=== PATIENT | male | born 1960 | race Caucasian/White ===

== ENCOUNTER 2019-06-07 13:08 | Emergency (ER) | payer BC ==
--- NOTE | 2019-06-07 13:49 | UC ---
General HPI - HPI Summary HPI Summary: 59yo male with PMH significant for htn and migraine presenting with for reported high bp this morning (180s/116) at pcp office. Patient states the visit went well and that his pcp changed one of his bp meds this morning. Unsure which one. Patient states that he then went to physical therapy and his blood pressure was still high. States at one point he began to have blurry vision, migraine, and tingling in his right hand/fingers. States this only lasted a few minutes and that it is similar to when he used to get migraines. States he has not had one in a long time. Denies any symptoms currently. Denies motor weakness. Denies n/v. Denies sweating. Denies chest pain, sob, and difficulty breathing. - History of Current Complaint Chief Complaint: UCEye Stated Complaint: BLOOD PRESSURE UP BLURRED VISION Hx Obtained From: Patient Pain Intensity: 0 - Allergy/Home Medications Allergies/Adverse Reactions: Allergies Allergy/AdvReac Type Severity Reaction Status Date / Time No Known Allergies Allergy Verified 06/07/19 15:18 Home Medications: Home Medications Omeprazole CAP (NF) [Prilosec CAP* 20 MG] 40 mg PO QAM 02/07/16 [History Confirmed 06/07/19] Atenolol TAB* [Tenormin TAB* 25 MG] 25 mg PO DAILY 06/07/19 [History Confirmed 06/07/19] Ibuprofen [Advil] 400 mg PO Q6HR PRN 06/07/19 [History Confirmed 06/07/19] Lisinopril TAB* [Prinivil TAB*] 20 mg PO DAILY 06/07/19 [History Confirmed 06/06] PMH/Surg Hx/FS Hx/Imm Hx Cardiovascular History: Hypertension Neurological History: Migraine - Surgical History Surgical History: Yes Surgery Procedure, Year, and Place: hernia, bilateral knee replacement. left shoulder tendon repair. meniscus left repair. left hand surgery - Family History Known Family History: Positive: Other - cancer. [place]. - Social History Alcohol Use: Weekly Substance Use Type: None Smoking Status (MU): Never Smoked Tobacco Review of Systems All Other Systems Reviewed And Are Negative: Yes Constitutional: Positive: Negative Eyes: Positive: Blurred Vision Respiratory: Positive: Negative Cardiovascular: Positive: Other - high bp Gastrointestinal: Positive: Negative Motor: Positive: Negative Neurological/Mental Status: Positive: Paresthesia - right hand/fingers Physical Exam Triage Information Reviewed: Yes Appearance: Well-Appearing, No Pain Distress, Well-Nourished Vital Signs: Initial Vital Signs Temp 97.3 F 06/07/19 13:17 Pulse 60 06/07/19 13:17 Resp 18 06/07/19 13:17 BP 171/106 06/07/19 13:17 Pulse Ox 98 06/07/19 13:17 Vital Signs Reviewed: Yes Eyes: Positive: Conjunctiva Clear ENT: Positive: Hearing grossly normal Neck: Positive: Supple Respiratory Exam: Normal Respiratory: Positive: Lungs clear, Normal breath sounds, No respiratory distress, No accessory muscle use Cardiovascular Exam: Normal Cardiovascular: Positive: RRR, No Murmur, Pulses Normal Neurological Exam: Normal, Other - CN II-XII intact, negative romberg, negative finger to nose, negative heel to siu, normal gait Neurological: Positive: Alert Psychological: Positive: Age Appropriate Behavior Skin Exam: Normal Diagnostics - EKG Cardiac Rate: NL Cardiac Rhythm: Sinus: Normal Ectopy: None ST Segment: Non-Specific - borderline T wave abnormalities Course/Dx - Course Course Of Treatment: Patient well-appearing. Neuro exam WNL. EKG nonspecific borderline T wave abnormalities. BP still elevated at 171/106. Discussed patient with Dr. Weinberg who agreed patient should receive further lab work and testing in the ED to rule out cardiac event and TIA/stroke. I discussed these recommendations with the patient who voiced understanding and agreed to have his take him to the ED immediately after leaving the urgent care. - Differential Dx - Multi-Symptom Differential Diagnoses: Cardiac Ischemia, CVA - /TIA - Diagnoses Provider Diagnosis: Paresthesias in right hand, Elevated blood pressure reading in office with diagnosis of hypertension Discharge ED - Sign-Out/Discharge Documenting (check all that apply): Patient Departure All imaging exams completed and their final reports reviewed: No Studies - Discharge Plan Condition: Stable Disposition: HOME-RECOMMEND TO ED Referrals: Ozzie Serna MD [Primary Care Provider] - Additional Instructions: The provider that evaluated you today thinks that you need additional testing that can be completed the emergency department. It is recommended that you go directly to emergency department for further evaluation. This evaluation included blood work or imaging. This testing will be directed and decided by the provider that evaluates you at the emergency department. If pain becomes worse, you feel lightheaded, you have uncontrolled vomiting, or you have any other concerns while you are being driven to emergency department it is recommended to pullover and contact 911. - Billing Disposition and Condition Condition: STABLE Disposition: Home-Recommend to ED
[2019-06-07 14:13] VITALS: BP 182/102
== END 2019-06-07 14:12 | disposition home health service (06) ==
LOC: UCEAST 13:08
DX: R20.2 Paresthesia of skin (principal); H53.8 Other visual disturbances; I10 Essential (primary) hypertension; Z79.899 Other long term (current) drug therapy; Z96.653 Presence of artificial knee joint, bilateral
CPT/HCPCS: 93005; 99211; G0463

== ENCOUNTER 2019-06-07 15:01 | Emergency (ER) | payer BC ==
[2019-06-07 16:41] LABS: ABS Basophils 0.1 10^3/ul (0-0.2); ABS Eosinophils 0.4 10^3/ul (0-0.6); ABS Lymphocytes 1.3 10^3/ul (1.0-4.8); ABS Monocytes 1.1 10^3/ul (0-0.8); ABS Neutrophils 4.2 10^3/ul (1.5-7.7); Hematocrit 46 % (42-52); Hemoglobin 15.9 g/dL (14.0-18.0); Lymphocyte % 18.2 %; Mean Corpuscular HGB Conc 35 g/dL (31-36); Mean Corpuscular Hemoglobin 31 pg (27-31); Mean Corpuscular Volume 89 fL (80-94); Mean Platelet Volume 7.3 fL (7.4-10.4); Nucleated Red Blood Cells % 0.1; Platelet Count 218 10^3/uL (150-450); Red Blood Count 5.13 10^6 /uL (4.18-5.48); Red Cell Distribution Width 14 % (10-15); White Blood Count 7.2 10^3/uL (3.5-10.8)
[2019-06-07 16:59] LABS: Albumin 4.3 g/dL (3.2-5.2); Albumin/Globulin Ratio 1.4 (1-3); BUN/Creatinine Ratio 11.7 (8-20); Calcium 9.6 mg/dL (8.6-10.3); EGFR Non-African American 67.8 (>60); Total Bilirubin 0.7 mg/dL (0.2-1.0); Total Protein 7.3 g/dL (6.4-8.9)
--- NOTE | 2019-06-07 20:33 | ED ---
Hypertension - HPI Summary HPI Summary: This patient is a 59 y/o male, with hx of HTN, presenting to [facility] referred by [facility] c/o elevated blood pressure today. Patient reports he went to physical therapy today for his back and was noted to have elevated blood pressure. Patient was taken to the Urgent Care by his therapist and he had an EKG. Patient was advised to come to the ED. Patient currently reports a mild frontal headache and nasal congestion. Denies chest pain, shortness of breath, nausea, vomiting. He states he does exercise regularly and goes to therapy twice a week (Tuesdays and ). Patient is retired. He reports for the past 2 nights he has waken up in the middle of the night at midnight. Patient takes Lisinopril for HTN. He notes he used to take hydrochlorothiazide but it was discontinued and ever since it was discontinued his blood pressure began to increase. Patient was told to re-start taking this medication again tomorrow. Home Medications Medication Instructions Recorded Confirmed Type Omeprazole CAP (NF) [Prilosec CAP* 40 mg PO QAM 02/07/16 06/07/19 History 20 MG] Atenolol TAB* [Tenormin TAB* 25 MG] 25 mg PO DAILY 06/07/19 06/07/19 History Ibuprofen [Advil] 400 mg PO Q6HR PRN 06/07/19 06/07/19 History Lisinopril TAB* [Prinivil TAB*] 20 mg PO DAILY 06/07/19 06/07/19 History - History of Current Complaint Chief Complaint: EDHypertension Stated Complaint: HIGH BLOOD PRESSURE PER PT Time Seen by Provider: 06/07/19 20:22 Hx Obtained From: Patient Onset/Duration: Started Hours Ago, Still Present Timing: Lasting Hours Aggravating Factor(s): Nothing Alleviating Factor(s): Nothing Associated Signs & Symptoms: Headaches - Allergies/Home Medications Allergies/Adverse Reactions: Allergies Allergy/AdvReac Type Severity Reaction Status Date / Time No Known Allergies Allergy Verified 06/07/19 15:18 Home Medications: Home Medications Omeprazole CAP (NF) [Prilosec CAP* 20 MG] 40 mg PO QAM 02/07/16 [History Confirmed 06/07/19] Atenolol TAB* [Tenormin TAB* 25 MG] 25 mg PO DAILY 06/07/19 [History Confirmed 06/07/19] Ibuprofen [Advil] 400 mg PO Q6HR PRN 06/07/19 [History Confirmed 06/07/19] Lisinopril TAB* [Prinivil TAB*] 20 mg PO DAILY 06/07/19 [History Confirmed 06/06] PMH/Surg Hx/FS Hx/Imm Hx Endocrine/Hematology History: Denies: Hx Diabetes Cardiovascular History: Reports: Hx Hypertension GI History: Reports: Hx Gastroesophageal Reflux Disease - Surgical History Surgical History: Yes Surgery Procedure, Year, and Place: hernia, bilateral knee replacement. left shoulder tendon repair. meniscus left repair. left hand surgery - Immunization History Date of Tetanus Vaccine: UTD Date of Influenza Vaccine: never Infectious Disease History: No Infectious Disease History: Denies: Traveled Outside the [place] in Last 30 Days - Family History Known Family History: Positive: Other - cancer. [place]. - Social History Occupation: Retired Alcohol Use: Weekly Hx Substance Use: No Substance Use Type: Reports: None Hx Tobacco Use: No Smoking Status (MU): Never Smoked Tobacco Review of Systems Negative: Fever ENT: Other - POSITIVE: nasal congestion Negative: Chest Pain Negative: Shortness Of Breath Negative: Vomiting, Nausea Positive: Headache All Other Systems Reviewed And Are Negative: Yes Physical Exam - Summary Physical Exam Summary: VITAL SIGNS: Reviewed. GENERAL: Patient is a well-developed and nourished male who is lying comfortable in the stretcher. Patient is not in any acute respiratory distress. HEAD AND FACE: No signs of trauma. No ecchymosis, hematomas or skull depressions. No sinus tenderness. EYES: PERRLA, EOMI x 2, No injected conjunctiva, no nystagmus. EARS: Hearing grossly intact. Ear canals and tympanic membranes are within normal limits. MOUTH: Oropharynx within normal limits. NECK: Supple, trachea is midline, no adenopathy, no JVD, no carotid bruit, no c- spine tenderness, neck with full ROM. CHEST: Symmetric, no tenderness at palpation LUNGS: Clear to auscultation bilaterally. No wheezing or crackles. CVS: Regular rate and rhythm, S1 and S2 present, no murmurs or gallops appreciated. ABDOMEN: Soft, non-tender. No signs of distention. No rebound, no guarding, and no masses palpated. Bowel sounds are normal. EXTREMITIES: FROM in all major joints, no edema, no cyanosis or clubbing. NEURO: Alert and oriented x 3. No acute neurological deficits. Speech is normal and follows commands. SKIN: Dry and warm Triage Information Reviewed: Yes Vital Signs On Initial Exam: Initial Vitals Temp Pulse Resp BP Pulse Ox 97.8 F 66 18 187/115 96 06/07/19 15:14 06/07/19 15:14 06/07/19 15:14 06/07/19 15:14 06/07/19 15:14 Vital Signs Reviewed: Yes Procedures - Sedation Patient Received Moderate/Deep Sedation with Procedure: No Diagnostics - Vital Signs Vital Signs Temp Pulse Resp BP Pulse Ox 06/07/19 18:51 98.6 F 64 17 174/99 94 06/07/19 16:51 98.8 F 68 17 172/93 96 06/07/19 15:14 97.8 F 66 18 187/115 96 - Laboratory Lab Results: Lab Results 06/07/19 06/07/19 Range/Units 16:33 16:33 WBC 7.2 (3.5-10.8) 10^3/uL RBC 5.13 (4.18-5.48) 10^6 /uL Hgb 15.9 (14.0-18.0) g/dL Hct 46 (42-52) % MCV 89 (80-94) fL MCH 31 (27-31) pg MCHC 35 (31-36) g/dL RDW 14 (10-15) % Plt Count 218 (150-450) 10^3/uL MPV 7.3 L (7.4-10.4) fL Neut % (Auto) 59.0 % Lymph % (Auto) 18.2 % Trinity % (Auto) 15.7 % Eos % (Auto) 6.0 % Baso % (Auto) 1.1 % Absolute Neuts (auto) 4.2 (1.5-7.7) 10^3/ul Absolute Lymphs (auto) 1.3 (1.0-4.8) 10^3/ul Absolute Monos (auto) 1.1 H (0-0.8) 10^3/ul Absolute Eos (auto) 0.4 (0-0.6) 10^3/ul Absolute Basos (auto) 0.1 (0-0.2) 10^3/ul Absolute Nucleated RBC 0.0 10^3/ul Nucleated RBC % 0.1 Sodium 138 (135-145) mmol/L Potassium 4.0 (3.5-5.0) mmol/L Chloride 104 (101-111) mmol/L Carbon Dioxide 28 (22-32) mmol/L Anion Gap 6 (2-11) mmol/L BUN 13 (6-24) mg/dL Creatinine 1.11 (0.67-1.17) mg/dL Est GFR ( Amer) 82.0 (>60) Est GFR (Non-Af Amer) 67.8 (>60) BUN/Creatinine Ratio 11.7 (8-20) Glucose 98 (70-100) mg/dL Calcium 9.6 (8.6-10.3) mg/dL Total Bilirubin 0.70 (0.2-1.0) mg/dL AST 19 (13-39) U/L ALT 28 (7-52) U/L Alkaline Phosphatase 62 (34-104) U/L Total Protein 7.3 (6.4-8.9) g/dL Albumin 4.3 (3.2-5.2) g/dL Globulin 3.0 (2-4) g/dL Albumin/Globulin Ratio 1.4 (1-3) Result Diagrams: 06/07/19 16:33 06/07/19 16:33 Lab Statement: Any lab studies that have been ordered have been reviewed, and results considered in the medical decision making process. Re-Evaluation - Re-Evaluation First Eval Re-Evaluation Time: 20:51 Comment: Manual blood pressure taken by ED nurse is 168/92. Second Eval Re-Evaluation Time: 21:41 Comment: Manual blood pressure is 158/90 Hypertension Course/Dx - Course Assessment/Plan: This patient is a 59 y/o male, with hx of HTN, presenting to [facility] referred by [facility] c/o elevated blood pressure today. Patient reports he went to physical therapy today for his back and was noted to have elevated blood pressure. Patient was taken to the Urgent Care by his therapist and he had an EKG. Patient was advised to come to the ED. Patient currently reports a mild frontal headache and nasal congestion. Denies chest pain, shortness of breath, nausea, vomiting. He states he does exercise regularly and goes to therapy twice a week (Tuesdays and ). Patient is retired. He reports for the past 2 nights he has waken up in the middle of the night at midnight. Patient takes Lisinopril for HTN. He notes he used to take hydrochlorothiazide but it was discontinued and ever since it was discontinued his blood pressure began to increase. Patient was told to re-start taking this medication again tomorrow. Manual blood pressure is 168/92. Blood work without a significant abnormality. In the ED course the patient was given clonidine 1 mg by mouth. Patient already took his atenolol today. Patient continues to be asymptomatic. Patient was also given HCTZ 25 mg PO. Blood pressure is 158/90 manually. Plan of care was discussed with the patient and he understands and agrees. All questions were answered at patient satisfaction. There were no further complaints or concerns. Lung exam before discharge: CTA B/L. Good air exchange. No wheezing or crackles heard. CVS: S1 and S2 present. No murmurs appreciated. Patient is alert and oriented x 3. Patient is hemodynamically stable. Patient will be discharged home with follow up from his PCP in the next 2-3 days. - Diagnoses Provider Diagnoses: Uncontrolled hypertension Discharge ED - Sign-Out/Discharge Documenting (check all that apply): Patient Departure - Discharge home - Discharge Plan Condition: Stable Disposition: HOME Patient Education Materials: Hypertension (ED) Referrals: Ozzie Serna MD [Primary Care Provider] - Additional Instructions: FOLLOW UP WITH YOUR PRIMARY CARE PROVIDER IN 2-3 DAYS. RETURN TO THE ED FOR ANY NEW OR WORSENING SYMPTOMS. - Billing Disposition and Condition Condition: STABLE Disposition: Home - Attestation Statements Document Initiated by Micheal: Yes Documenting Scribe: Elizabeth Carranza Provider For Whom Micheal is Documenting (Include Credential): Rivera Escudero MD Scribe Attestation: Elizabeth Medina, scribed for Rivera Escudero MD on 06/11/19 at 1750. Scribe Documentation Reviewed: Yes Provider Attestation: The documentation as recorded by the Elizabeth pate accurately reflects the service I personally performed and the decisions made by me, Rivera Escudero MD Status of Scribe Document: Viewed
[2019-06-07] MEDS ORDERED: cloNIDine TAB* 0.1 MG PO ONE (20:48)
[2019-06-07] MEDS ORDERED: Hydrochlorothiazide TAB* 25 MG PO ONE (21:42)
[2019-06-07 22:13] VITALS: BP 158/90
== END 2019-06-07 22:12 | disposition home or self-care (01) ==
LOC: ED 15:01
DX: I10 Essential (primary) hypertension (principal); Z79.899 Other long term (current) drug therapy
CPT/HCPCS: 36415; 80053; 84484; 85025; 99283; A9270-GY

== ENCOUNTER 2023-12-22 11:10 | Observation (INO) ==
[~2023-12-22 11:10] MED LIST: Bupivacaine 0.25% EPI 200,000 30 ML SDV ONE; Dexamethasone IV 4 MG/ML VIAL 1 ml VIAL ONE; Lidocaine 2% PF 5 ML VIAL ONE; Midazolam 2 mg/2 ml VIAL 1 mg/ml 2 ml VIAL (2 mg) ONE; Naloxone 0.4 mg VIAL 0.4 mg/ml 1 ml VIAL IV PRN; Ondansetron 4 mg VIAL 2 MG/ML 2 ml VIAL ONE; Propofol 10 MG/ML 20 ML BTL ONE; Rocuronium 50 mg VIAL 10 mg/ml 5 ml VIAL (50 mg) ONE; fentaNYL 100 mcg/2 ml 50 MCG/ML VIAL IV PRN; fentaNYL 250 mcg/5 ml 50 MCG/ML 5 ml VIAL (250 MCG) ONE
[2023-12-22] MEDS ORDERED: ceFAZolin 2 GM PREMIX 2 GM/50 ML BAG ONE (11:46)
[2023-12-22] MEDS ORDERED: Acetaminophen IV 1 GM/100ML 1,000 MG/100 ML BAG IV ONE ×2 (13:15→20:07)
[2023-12-22] MEDS ORDERED: HYDROmorphone 0.5 MG/0.5 ML SYRINGE ONE (13:43)
[2023-12-22] MEDS ORDERED: fentaNYL 100 mcg/2 ml 50 MCG/ML VIAL ONE ×3 (13:43→19:20)
[2023-12-22] MEDS ORDERED: Rocuronium 50 mg VIAL 10 mg/ml 5 ml VIAL (50 mg) ONE ×2 (16:12→18:14)
[2023-12-22] MEDS ORDERED: ceFAZolin VIAL VIAL ONE ×2 (16:46)
[2023-12-22] MEDS ORDERED: Ondansetron 4 mg VIAL 2 MG/ML 2 ml VIAL ONE (18:51)
[2023-12-22] MEDS ORDERED: Ondansetron 4 mg VIAL 2 MG/ML 2 ml VIAL IV PRN (19:19)
[2023-12-22] MEDS ORDERED: HYDROmorphone 1 MG/1 ML SYRINGE IV SLOW PU PRN (19:22)
[2023-12-22] MEDS ORDERED: HYDROmorphone 0.5 MG/0.5 ML SYRINGE IV SLOW PU PRN (19:22)
[2023-12-22] MEDS ORDERED: Metoclopramide 5 MG/ML VIAL (10 mg) IV SLOW PU PRN (19:22)
[2023-12-22] MEDS ORDERED: HYDROcodone/ACET. 7.5/325 LIQ 15 ML UDC PO PRN (19:24)
[2023-12-22] MEDS ORDERED: Scopolamine 1 mg/72hr PATCH TRANSDERM PRN (19:25)
[2023-12-22] MEDS: Acetaminophen IV 1 GM/100ML 1,000 MG/100 ML BAG IV PRN (20:10)
[2023-12-22] MEDS: Pantoprazole VIAL 40 MG VIAL IV SCH (21:30)
[2023-12-22] MEDS: Lactated Ringers 1000 ml BAG 1,000 ML IV SCH ×2 (21:30→22:35)
[2023-12-22] MEDS: Buffered Lidocaine 1% SYRIN 1 ml INTRADERM ONE (21:30)
[2023-12-23 14:33] VITALS: BP 131/77
== END 2023-12-23 14:52 | disposition home or self-care (01) ==
LOC: SSU 11:10 → OR 11:10
PROVIDERS: ADMIT Surgery; ATTEND Surgery